=== PATIENT | female | born 2000 | race Caucasian/White ===

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

== ENCOUNTER 2020-01-28 11:14 | Outpatient (CLI) | payer BC, SELFPAY ==
--- NOTE | ~2020-01-28 | US_ITS ---
EXAMINATION: US breast RT limited HISTORY: Palpable lump at the 12:00 location of the right breast. TECHNIQUE: Limited right breast ultrasound is performed. FINDINGS: There is no evidence of focal abnormal cystic or solid mass in the vicinity of the reported palpable abnormality of concern. IMPRESSION: No specific sonographic correlate is identified for the reported palpable abnormality of concern. Fur ther evaluation at this time should be based on clinical assessment. Continued follow-up physical exa mination is recommended. BI-RADS Category 1: Negative Reviewed, dictated and finalized at location A. IMPRESSION: No specific sonographic correlate is identified for the reported palpable abnor mality of concern. Further evaluation at this time should be based on clinical assessment. Continued follow-up physical examination is recommended. BI-RADS Category 1: Negative
== END 2020-01-28 11:15 | disposition home or self-care (01) ==
LOC: ANHIMG 11:20
PROVIDERS: PCP Family Medicine; Visit Provider Nurse Practitioner Obstetrics & Gynecology
DX: N63.10 Unspecified lump in the right breast, unspecified quadrant (principal)
CPT/HCPCS: 76642

== ENCOUNTER 2021-08-30 02:18 | Day surgery (SDC) | payer BC, SELFPAY ==
[2021-08-24 09:20] VITALS: BMI 20.5
--- NOTE | 2021-08-24 09:27 | PC.NURSE ---
Report to the Outpatient Waiting Room, entrance under the green pavilion located off [facility], at time 0600 on date 08/30/21. OR Time: 0745. - You and your visitor will be asked a series of questions to screen for COVID 19 for your protection. - A mask is required within the hospital. - Only one visitor is allowed at this time. Patient visitors will be guided where to wait when not with patient. Preoperative COVID Testing Requirements: No COVID Test needed if: (proof is required; if not received patient will have Rapid Test prior to entry) - Patient has received COVID Vaccine at least 14 days prior to procedure date or - Patient has positive COVID test result within last 90 days of surgery date. COVID Test needed if above criteria is not met If not COVID vaccinated a COVID test must be conducted within 72 hours of surgery and patient is asked to isolate self from time of testing until procedure. You will go to the [facility] for your COVID testing. The [facility] site is located at the corner of [address] [facility]. You will only be called if COVID results are positive and your surgeon may reschedule your elective surgery date. Patients may have clear liquids (water, carbonated beverages, clear teas, apple juice) until 3 hours prior to surgery with a maximum of 20 ounces. - No food from midnight until time of surgery - Infants may have breast milk until 4 hours before surgery, formula 6 hours prior to surgery. - Children will be allowed to drink immediately following surgery. If applicable, please bring a bottle or sippy cup to assist with drinking. Juice, water, soda, and popsicles are readily available. For infants on formula, please bring formula the day of surgery. Pacifiers are allowed. Take the following medications with a SIP of water the morning of surgery: NONE Medications to discontinue per physician: VITAMINS/SUPPLEMENTS Date to take last dose: 08/26/21 STOP ASPIRIN (IN MIGRAINE RELIEF PILL) PER DR. COOPER Please no make-up, nail hungarian, hairspray, perfume, deodorant, or body powder the day of surgery. No jewelry (including any body piercings) or valuables the day of surgery, leave them at home. Please take a shower or bath the night before, or the morning of, surgery with an antibacterial soap. Wear comfortable, loose fitting clothing. Children are encouraged to wear pajamas. - Jewelry must be removed prior to entering the operating room. Rings and piercings that are not removed may be cut off. - The hospital will not accept responsibility for valuables. - Please leave all valuables, including medications, at home the day of surgery. If you are going home after surgery, a licensed truck driver's offsider must drive you home. - NO public transportation without another adult. - We recommend that an adult stay with you for 24 hours following discharge. - We also recommend that you do not drive, make important decision, drink alcoholic beverages, or take any drugs that were not prescribed by your health care provider for at least 24 hours after your discharge time. For Pediatric surgeries, we recommend two adults accompany the child home (only one inside the building at this time). Follow any additional instructions given to you from your surgeon. Telephone instructions given to FARIHA DAVIES and asked if any additional questions and then verbalized understanding. Patient advised to call surgeon office or pre surgery nurse liaison [phone] if any additional questions.
[2021-08-30] VITALS (8 sets, daily range): BP systolic 109–140; BP diastolic 68–89; PULSE 58–98; RESP 10–16; TEMP 36.2–36.6; O2SAT 98–100
[2021-08-30] MEDS: ACETAMINOPHEN 500 MG TABLET 1000 MG PO (06:50)
--- NOTE | 2021-08-30 07:13 | WPDANESEPPF ---
Anes - Initial Pre Proc Eval Procedure: Operation Date: 08/30/21 07:45 Proposed Procedures p Image Guided Bilateral Ethmoidectomy, Bilateral Maxillary Antrostomy, Bilateral Turbinate Reduction, Right Citlali Bullosa Resection - Edgard Florentino MD Date/Time: 08/30/21 07:13 Surgeon: Edgard Florentino MD Pre Op Diagnosis: Chronic Sinusitis Patient Data Age: 21 Gender: F Height: 1.73 m Weight: 61.24 kg Allergies Allergy/AdvReac Type Severity Reaction Status Date / Time Tetanus Vaccines and Toxoid Allergy Severe Seizure Verified 08/30/21 06:18 aloe Allergy Intermediate Hives Verified 08/30/21 06:18 Home Medications Medication Instructions Recorded Confirmed Type loratadine [Claritin] 10 mg PO DAILY 10/29/19 08/30/21 History vznaair-ynnzscmxujjmv-kkoknxpt 1 tablet PO Q4-6H PRN 08/24/21 08/30/21 History [Migraine Relief] multivitamin [One A Day] 1 tablet PO DAILY 08/24/21 08/30/21 History Patient hx anesthesia problems: none Family hx anesthesia problems: none Results Review: All pre-operative results and documents have been reviewed as part of the pre-operative evaluation. [facility] Past Medical History Medical History Adult BMI 19-24 kg/sq m GERD (gastroesophageal reflux disease) Hx of migraines Family History Family History Father GERD (gastroesophageal reflux disease) Mother No problems noted. Sibling No problems noted. 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 Informed Consent: The patient's anesthetic plan and its attendant risks and benefits were discussed with the patient/family/POA. Questions were solicited and answers provided to the satisfaction of the patient/family/POA.
[2021-08-30] MEDS: LACTATED RINGERS 1,000 ML 30 ML IV CONT ×2 (07:25→08:59)
[2021-08-30] MEDS: OXYMETAZOLINE HCL 0.05% NAS 15 ML BTL (*BKC) 1 SPRAY NASAL (07:31)
--- NOTE | 2021-08-30 07:43 | P.HP_ITS ---
"H&P: HPI History of Present Illness Date/Time: 08/30/21 07:43 Chief Complaint: Recurrent polyposis Narrative: hx of FESS in 2020, polyp recurrence with chronic sinusitis Review of Systems Review of Systems: All systems reviewed & are unremarkable except as noted in HPI and below PMFSH Past Medical History Medical History Adult BMI 19-24 kg/sq m GERD (gastroesophageal reflux disease) Hx of migraines Family History Family History Father GERD (gastroesophageal reflux disease) Mother No problems noted. Sibling No problems noted. 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[employer] Gender identity (if verbalized by the patient): Female Spiritual care concerns: No Meds Home Medications and Allergies Home Medications Medication Instructions Recorded Confirmed Type loratadine [Claritin] 10 mg PO DAILY 10/29/19 08/30/21 History gikoltc-msxxtkvkzsbgp-yyjjtouz 1 tablet PO Q4-6H PRN 08/24/21 08/30/21 History [Migraine Relief] multivitamin [One A Day] 1 tablet PO DAILY 08/24/21 08/30/21 History Allergies Allergy/AdvReac Type Severity Reaction Status Date / Time Tetanus Vaccines and Toxoid Allergy Severe Seizure Verified 08/30/21 06:18 aloe Allergy Intermediate Hives Verified 08/30/21 06:18 Vital Signs Vital Signs - 24 hr 08/30/21 07:23 Temperature 36.6 C Pulse Rate 98 Blood Pressure 114/68 Pulse Oximetry 100 Exam Narrative: Bilateral nasal polyps, chronic maxillary and ethmoid sinusitis, r est of exam wnl Assessment and Plan Assessment and plan (1) Nasal polyp: Code(s): J33.9 - Nasal polyp, unspecified Status: Acute Assessment and Plan: Rebeca has chronic sinusitis, nasal polyposis recurrence after FESS in 2019 despite topical and oral steroid use. Here today for revision FESS. r/b/a reviewed as documented in outpatient notes."
--- NOTE | 2021-08-30 07:45 | W.PM.PROC2 ---
Procedure Note - Detailed Date of Procedure 08/30/21 Pre-op Diagnosis Chronic Sinusitis Surgeon Edgard Florentino MD
--- NOTE | 2021-08-30 07:45 | WPDHPUPDATE1 ---
History and Physical Update Update Date/Time: 08/30/21 07:45 History and Physical has been reviewed, including an updated exam of the patient. There are NO changes in the patient's condition. Risks, benefits, and alternatives have been discussed and questions answered. Patient agrees to proceed with procedure.
[2021-08-30] MEDS: ceFAZolin 2 GM/D5W 50 ML 2 GM/50 ML BAG IVPB (07:57)
[2021-08-30] MEDS: LIDO 1%/EPINEPHRINE 1:100,000 50 ML VIAL INFILTRATE (08:48)
--- NOTE | 2021-08-30 08:51 | W.PM.PROC2 ---
Procedure Note - Detailed Date of Procedure 08/30/21 Pre-op Diagnosis Chronic Sinusitis Post-op Diagnosis same Procedure Performed Bilateral maxillary antrostomy, total ethmoidectomy, right georgina bullosectomy, inferior turbinoplasty Surgeon Edgard Florentino MD Anesthesia general Indications Chronic sinusitis and nasal polyposis Findings Polypoid degeneration of bilateral middle turbinates. Middle turbinectomy performed bilaterally Description of Procedure On the date of procedure the patient was met in the preoperative area and risk and benefits of the procedure reviewed with the patient as documented in the H&P and they elected to proceed with surgery. Patient was brought back to the operating room by the anesthesia team and underwent general endotracheal anesthesia. Once an adequate plane of anesthesia was obtained a timeout was performed to assure the patient identification the patient here to be performed were correct. They were.The patient was then prepped and draped in the normal fashion for endoscopic sinus surgery. The diffusion image guidance system was calibrated and used for the entire case. Afrin-soaked pledgets were placed in the nasal cavities bilaterally. The entire case was performed under endoscopic visualization. Nasal endoscopy was performed at the beginning of the case. 1% lidocaine with 1:100,000 epinephrine was then injected into the root of the middle turbinate and lateral nasal wall. Attention was first directed towards the right side. The middle turbinate was noted to be polypoid and obstructing the middle meatus. Decision made for partial middle turbinectomy which was performed with biting forceps and microdebrider. The maxillary ostia from previous surgery was patent and only partially needed revision and widening. There were residual cells of the ethmoid sinus that were removed using image guided microdebrider. Once the maxillary antrostomy, ethmoidectomy and middle turbinectomy were completed, this side was finished. Novapack was placed in the ethmoid cavity and care was directed to the left side. In a very similar fashion, the left maxillary antrostomy, total ethmoidectomy, middle turbinectomy were performed. Polyps were noted on the left middle turbinate as well. No clinical evidence of CSF throughout the case. With all sinuses opened and no remaining polyp disease appreciated, novapack packing was placed in the ethmoid acvities bilaterally. Hemostasis was ensured. Lastly, the bilateral inferior turbiantes were reduced submucosally using 2mm microdebrider and then outfractured with a sayer elevator. This significantly opened the airway. At this point, the procedure was concluded. Care the patient was transferred back to the anesthesia team and the patient was awoke in the operating room and transferred back to the PACU in stable condition. Edgard Florentino M.D. Estimated Blood Loss 10 Drains No Packing Yes (jennifer) Pathology none sent Complications No immediate complications Condition stable Disposition PACU
== END 2021-08-30 10:36 | disposition home or self-care (01) ==
PROVIDERS: PCP Family Medicine; Visit Provider Otolaryngology
PROC: (CPT 31255; principal; 2021-08-30 07:45)
DX: J32.9 Chronic sinusitis, unspecified (principal); J33.9 Nasal polyp, unspecified
CPT/HCPCS: 31255; 31240; 31256; 61782; 30140; A9270; J0330; J0690; J1100; J2250; J2405; J2704; J3010; J7120

== ENCOUNTER 2022-09-07 13:39 | Outpatient (CLI) | payer BC, SELFPAY ==
--- NOTE | ~2022-09-07 | XR_ITS ---
XR chest 2V DATE: 09/07/2022 13:56 INDICATION: Cough TECHNIQUE: 2 views COMPARISON: 07/05/2019 2 view chest FINDINGS: There is mild patchy left lower lobe infiltrate and/atelectasis. Left lower lobe pneumonia is suggested. The lungs otherwise appear clear. No pleural effusion, pulmonary vascular congestion or pneumothorax. Heart size is normal. Included skeletal structures are unremarkable. IMPRESSION: Mild patchy left lower lobe infiltrate and/atelectasis Reviewed, dictated and finalized at location B. ROLLER
== END 2022-09-07 13:40 | disposition home or self-care (01) ==
PROVIDERS: PCP Family Medicine; Visit Provider Nurse Practitioner Family
DX: R05.9 Cough, unspecified (principal); R91.8 Other nonspecific abnormal finding of lung field
CPT/HCPCS: 71046

== ENCOUNTER 2025-07-16 13:05 | Inpatient (IN) | payer BC, MEDICAID, SELFPAY ==
[2025-07-16] VITALS (91 sets, daily range): BP systolic 94–139; BP diastolic 45–112; PULSE 64–297; RESP 17; TEMP 36.6–36.9; O2SAT 96–100; BMI 28.5
--- NOTE | 2025-07-16 13:41 | LDADM ---
This patient, Rebeca Mcmahan, was admitted to Labor/Delivery/Recovery 103 on 07/16/25 at 13:05. Plans for labor, pain management and were discussed with patient. Patient/family oriented to hospital policies and general routines including ID bracelet, bed and alarms, visiting hours, pain management, procedures, bathroom and other care routines, personal items, smoking policy, room service/diet and guest tray routines, infant security routines, and visiting hours. Patient/Family are encouraged to report perceived risks to care and to ask questions if they do not understand what they are told or what they should do. See [facility] for further documentation.
[2025-07-16 13:45] LABS: Hematocrit 33.2 % (37.0-47.0); Hemoglobin 10.6 g/dL (12.0-15.0); Immature Granulocyte Percent A 0.9 % (0-0.5); Lymphocytes Absolute Auto 2.20 K/mm3 (0.9-3.2); Mean Corpuscular HGB Conc 31.9 g/dl (32-36); Mean Corpuscular Hemoglobin 26.2 pg (26-34); Mean Corpuscular Volume 82.2 fl (80-100); Nucleated Red Blood Cells Absolute Auto 0.000 K/mm3 (0.0-0.012); Nucleated Red Blood Cells Perc 0.0 % (0.0-0.2); Platelet Count Result 259 k/mm3 (150-375); Red Blood Count 4.04 M/mm3 (4.2-5.4); White Blood Count 11.5 K/mm3 (4.5-10.0)
[2025-07-16] MEDS: fentaNYL CITRATE INJ (*CRX) 100 MCG/2 ML VIAL 50 MCG IV PUSH (14:12)
[2025-07-16 14:24] LABS: OBXCEM ROM Plus Positive (Negative)
[2025-07-16 14:31] LABS: Syphilis IgG/IgM Antibody Non-Reactive (Nonreactive)
--- OUTSIDE RECORDS SUMMARY | 2025-07-16 14:42 | XMS_ITS | Clinical Summary ---
Author Organization [facility] Address [address] [place] [address] Care Team Providers Care Moshgiach Name Role Phone Trina Diaz MD Unavailable [phone] Source Comments [facility],non-owned Affiliates and Associated Physician Practices is amultiple site organization consisting of ambulatory clinics and hospital sitesin [place], [place], [place] and [place]. This disclosure is being madepursuant to the Care Everywhere program and may not contain all information available regarding this patient. Last updated 18.[facility] Allergies Active Allergy Reactions Criticality Noted Date Comments Aloe Vera 10/20/2009 Adacel Other Low 07/23/2012 Passed out after shot and had some shaking movements. Mom thinks it was a seizure. (Mom is EMT). (likely myoclonic jerks) Medications * Be aware that medications may not be up to date on this document. Alwaysverify current medications with the patient. MICROGESTIN FE 1.530 1.5-30 MG-MCG tablet TK 1 T PO QD 0 7 Active loratadine (CLARITIN) 10 MG tablet Take 10 mg by mouth once daily as needed for Runny Nose or Allergies Active Active Problems Patient Care Coordination No te Formatting of this note migh t be different from the original. Please see care plan in problem list. Problem Noted Date Diagnosed Date USP: abnormality in pr egnancy (HCC) - Unilateral pyelectasis 07/08/2025 Overview (07/08/2025): Images from the original note were not included. USP PATIENT--PLEASE CALL [phone] (ex 2) IF TRIAGED OR ADMITTED Care Provider: [facility] consultants involved: Diagnosis: Planned surveillance: Delivery location: Delivery mode: Desired Delivery GA: follow up: Body Recall Instructor: Autopsy indicated: Genetics note: Php Mysql Web Developer Concerns: Care plan based on evaluation and is subject to change based on assessment. See Images or Cardiac under Chart Review for US/ ECHO/ MRI reports. Allergic rhinitis 05/17/2011 Allergic conjunctivitis 05/17/2011 Multiple allergies 05/17/2011 Estimated Date of Delivery Comme nts Yes 07/28/2025 Based on Patient Reported Encounters Date Type Department Care Team Description 07/09/[address] [phone] Kendal Love, RN Returned Call 07/08/[address] [address] Rosibel Causey, meal attendant 07/07/2025 Telephone [facility] [address] [place], [place] [id number] Jemma Concepcion RN Future Appointment (Called patient to let her know to expect a call from [facility] for future appt regarding renal dilation seen on outside scan.) from Last 3 Months Immunizations Immunization Administration Dates Next Due INFLUENZA VACCINE, TRIV. (AF LURIA, FLUZONE TRIVALENT; 6MO+) (IIV3) 05/19/2011 DTaP VACCINE IM (6wk-6yrs) 05/25/2006,,02/06/2001,11/30,2000 HEP A PEDS 2 DOSE 03/08/2012,05/27/2006 HEP B VACCINE, PED/ADOL 05/17/2001,2000, HIB BOOSTER 09/15/2003, 1,2000,10/02 GIO VACCINE QUAD LAIV4 PF NASAL 06/10/2015,2012 MENINGOCOCCAL ACWY (MCV4P) VAC IM 06/08/2018, MMR 05/25/2006,08/03/2001 PNEUMOCOCCAL CONJ, PEDS 08/21/2003,02/06,2000,10/02 POLIO IPV 05/25/2006, 3,2000,10/02 PPD 05/25/2006,08/03/2001 TDAP (7yrs+) 03/08/2012 VARICELLA 06/10/2015,08/21/2003 Family History Medical History Relation Name Comments Allergies Brother Bleeding Disorders Brother Allergies Mother Anemia Mother Asthma Mother Migraine Mother Relation Name Status Comments Brother Mother Social History Tobacco Use Types Packs/Day Years Used Date Smoking Tobacco: Never Smokeless Tobacco: Never Estimated Date of Delivery Comme nts Yes 07/28/2025 Based on Patient Reported Sex and Gender Information Value Date Recorded Sex Assigned at Not on file 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 Gender Identity Not on file Sexual Orientation Not on file Last Filed Vital Signs Vital Sign Reading Time Taken Comments Blood Pressure 108/70 11/26/2018 1:09 PM CDT Pulse 53 11/26/2018 1:09 PM CDT Temperature 36.6 C (97.8 F) 11/26/2018 1:09 PM CDT Respiratory Rate - - Oxygen Saturation - - Inhaled Oxygen Concentration - - Weight 65.8 kg (145 lb) 11/26/2018 1:09 PM CDT Height 171.5 cm (5' 7.5) 11/26/2018 1:09 PM CDT Body Mass Index 22.38 11/26/2018 1:09 PM CDT Plan of Treatment Upcoming Encounters Date Type Department Care Team (Late st Contact Info) Description 07/17/2025 2:15 PM CDT Hospital Encounter [address] [address] Health Maintenance Due Date Last Done Comments HIV SCREENING 2015 HPV VACCINE (1 - 3-dose series) 2015 CHLAMYDIA/GONORRHEA SCREENING 2016 HEPATITIS C SCREENING 07/28/2018 PAP SMEAR 2021 DTAP/TDAP/TD VACCINES (7 - Td or Tdap) 03/08/2022 03/08/2012, 05/25/2006, 09/15/2003, Additional history exists DEPRESSION SCREENING 09/18/2024 OB-ONE HOUR GLUCOSE 04/21/2025 OB-TDAP CURRENT 04/28/2025 03/08/2012 OB-RHOGAM INJECTION 05/05/2025 COVID-19 VACCINE ( season) 2025 06/10/2022, 03/09/2021, 02/10/2021 INFLUENZA VACCINE (#1) 2025 5, 06/06/2013, 05/19/2011 OB-GROUP B STREP SCREEN 06/23/2025 ZOSTER VACCINE (1 of 2) 2050 HEPATITIS B VACCINE Completed 05/17/2001, 2000, 2000 PNEUMOCOCCAL VACCINE Completed 08/21/2003, 02/06/2001, 2000, Additional history exists HIB VACCINE Completed 09/15/2003, 01/17, 2000, Additional history exists MENINGOCOCCAL GROUPS A/C/Y/W VACCINE Completed 06/08/2018, 06/10/2015 MENINGOCOCCAL (Group B) VACCINE SHARED DECISION-MAKING Aged Out No longer eligible based on patient's age to complete this topic Respiratory Syncytial Virus (RSV) Vaccine Pt: or over 60 yrs (No Doses Required) Completed Goals Goal Patient Goal Type Associated Problems Recent Progress Patient-Stated? Author Use safety retraint in car Lifestyle On track( 018 2:13 PM AIR MOVING TECHNICIAN) Violet Gusman, RN Insurance [employer] ANTHEM ANTHEM ANTHEM * Guarantor: FARIHA DAVIES Account Type Relation to Patient Date of Phone Billing Address Personal/Family [address] [place] [address] Care Teams Moshgiach Relationship Specialty Start Date End Date Trina Diaz MD PCP - Pediatrics 09/21/09
--- OUTSIDE RECORDS SUMMARY | 2025-07-16 14:42 | XMS_ITS | Encounter Summary ---
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
--- OUTSIDE RECORDS SUMMARY | 2025-07-16 14:43 | XMS_ITS | Data Portability ---
Author Organization [facility] Address [address] [place] [address] [place] [address] Care Team Providers Care Central Office Operator Name Role Phone YAIR COOK Primary Care Provider Assessment Encounter Date Assessment Date Assessment LastModified by Organization Details LastModified Time 06/20/2025 06/20/2025 Patient is _34__weeks . Discussed plan. [email or web address] Not available 06/20/2025 16:25:55 07/04/2025 07/04/2025 Patient is ___weeks . Discussed plan. [email or web address] Not available 07/04/2025 16:59:08 07/11/2025 07/11/2025 Patient is ___weeks . Discussed plan. [email or web address] Not available 07/11/2025 16:31:04 Plan of Treatment Reminders Order Date Submit Date Provider Last Modified By Organization Details Last Modified Time Details Appointments OB ROUTINE 2024 03:00P Reba Orellana CNM Not available Not available Not available Lab None recorded . Referral None recorded . Procedures None recorded . Surgeries None recorded . Imaging US, obstetri c, follow-u p 2024 025 SANDY [place], [address], [address], [place], [address], 07/05/2025 22:47:13 US, obstetri c, follow-u p 2024 025 [email or web address] [place], [address], [address], [place], [address], 06/04/2025 17:39:39 Medication Orders None recorded . Patient TargetsNo targets recorded. Patient InstructionsNo instructions recorded. Reason for Referral None Reported. Results Created Date Observation Date Name Description Value Unit Range Abnormal Flag Note LastModifiedBy Organization Detail LastModifiedTime 05/06/2005/06/2025 HEMAT OCRIT (HCT) HCT 32.6 % (based on docume nted legal sex) 34.0-4 5.0 low Not Available [facility] (Lab) [address] [place], [address], 05/07/2025 12:18:15 05/06/20 25 05/06/2025 HEMOG LOBIN (HGB) HGB 10.5 g/dL (based on docume nted legal sex) 11.6-1 5.4 low Not Available [facility] (Lab) [address] [place], [address], 05/07/2025 12:18:15 05/06/20 25 05/06/2025 GTT - GESTA MARCY L LIV [place], ACOG OB glucose, 1 hour screen 104 mg/dL 70-135 Not Available [facility] (Lab) [address] [place], [address], 05/07/2025 12:18:16 05/06/20 25 05/06/2025 HIV 1/2 ANTIG EN/AN TIBOD Y, REFLE X CONFI RMATI ON HIV antigen/anti body Nonrea ctive nonrea ctive HIV-1 antig en and HIV-1 /HIV- 2 antib odies were not detec chris. No labor atory evide nce of HIV infec tion. Not Available [facility] (Lab) [address] [place], [address], 05/07/2025 12:18:16 05/06/20 25 05/06/2025 RPR SCREE N, REFLE X TITER /CONF IRMAT ION RPR qualitative Nonrea ctive nonrea ctive Not Available [facility] (Lab) [address] [facility], [place], [address], 05/07/2025 12:18:17 07/04/20 25 07/04/2025 CULTU RE: GROUP B STREP SCREE N, REFLE X SUSCE PTIBI LITY result report SEE RESULT S BELOW Test: Cultu re: Group B Strep , Refle x Susce ptibi lity ([facility]/ [facility] ) Speci men Sourc e: Vagin a/Rec cheikh Speci men Type: Vagin al/Re ctal Speci men Date: 07/04 1615 Resul t Date: 07/07 1407 Resul t Statu s: Final resul t Abnor mal: No Resul ting Lab: [facility] [address] [facility] [address] Tel: CULTU RE ----- ----- ----- --- No Group B strep isola chris at 2 days (jennifer ctive broth enhan cemen t) Not Available [facility] (Lab) [address] [facility], [place], [address], 07/07/2025 15:28:53 06/04/20 25 06/04/2025 US, obste tric, follo w-up No observ ation record ed. [email or web address] [place] [address], [place], [address], 06/04/2025 17:38:59 06/04/20 25 06/04/2025 US, obste tric, follo w-up No observ ation record ed. [email or web address] [address] [facility], [place], [address], 06/04/2025 18:49:17 07/04/20 25 07/04/2025 US, obste tric, follo w-up No observ ation [facility]. [email or web address] [address], [place], [address], 07/04/2025 17:00:18 07/04/20 25 07/04/2025 US, obste tric, follo w-up No observ ation record ed. [email or web address] [address], [place], [address], 07/06/2025 20:58:08 Result Notes None recorded. 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 15:38:[address] Concept Completed 201503/29/2021 Encntr for routine child health exam w/o abnormal findings ;Recorde d Elsewher e: No Locat ion: [facility] S ource: [employer] Former jenna: N Kath ce ID: 0001 Bradley lable Time: 11:15:00 AM [facility] 15:38:[address] Concept Completed 201503/29/2021 Encntr for obstetrics gyn physician exam (general ) (routine ) w/o abn findings ;Recorde d Elsewher e: No Locat ion: [facility] S ource: [employer] Former jenna: N Arunti ce ID: 0001 Bradley lable Time: 11:15:00 AM [facility] 15:38:09 Uses combined oral contrace ption [id number] Completed 201503/29/2021 Encounte r for initial prescrip tion of contrace ptive pills;Re corded Elsewher e: No Locat ion: [facility] S ource: E[employer] And Former jenna: N Kath ce ID: 0001 Bradley lable Time: 11:15:00 AM Shea Chakraborty [facility], [facility] 15:37:58 Syphilis test finding [id number] Completed 201503/29/2021 Encntr screen for infectio ns w sexl mode of transmis s;Record ed Elsewher e: No [facility] Former jenna: Tae Diasti ce ID: 0001 Bradley lable Time: 11:15:00 AM Shea Chakraborty [facility], [facility] 15:38:11 Procedur e by method Completed 201603/29/2021 Encounte r for other general counseli ng and advice on contrace ption;Re corded Elsewher e: No Locat ion: [facility] S ource: E[employer] Former jenna: Tae Stockton ce ID: 0001 Bradley lable Time: 01:00:00 PM Shea Chakraborty [facility], [facility] 15:38:00 Pregnanc y test negative [id number] Completed 201803/29/2021 Encounte r for pregnanc y test, result negative ;Recorde d Elsewher e: No Locat ion: [facility] S ource: EHR [employer] And Former jenna: Tae Kath ce ID: 0001 Bradley lable Time: 01:30:00 PM Shea gandhi, [facility] 15:38:06 Finding of regulari ty of menstrua l cycle Completed 201803/29/2021 Irregula r bleeding ;Recorde d Elsewher e: No Locat ion: [facility] S ource: EHR Ins[employer] And Former jenna: Tae Arunti ce ID: 0001 Bradley lable Time: 01:30:00 PM Shea Chakraborty [facility], [facility] 15:38:02 Pregnanc y 68264120 Active 2024 Roxie Mendoza [facility], [facility] 5 15:17:52 Asthma 664184457 [facility] 20[facility] 17:56:09 Asthma 885231215 Active 2024 Roxie Mendoza [facility] 5 17:56:09 Problem Notes None recorded. Procedures Surgical History Date Name Laterality Status Provider Name and Address Organization Details Recorded Time 5 Date of Last [facility] 16:14:02 1 perinasal sinusotomy completed [facility] 12/20/2024 16:15:15 0 operation on accessory sinus completed [facility] 02/21/2025 17:56:52 Imaging Results None recorded. Procedure Notes None recorded. Medical Equipment None Reported. Allergies Allergen ID Allergen Name Allergen Category Reaction Reaction Severity Criticality Documentation Date Start Date Code Code System Note Provider Name and Address Organization Details Recorded Time 503 aloe extract food,medi cation Not available Not available Not available 01/24/2020 51127 RxNorm Melany Rene [facility] 0 10:49:18 504 Vaccine product containin g only Clostridi um tetani antigen (medicina l product) medicatio n Not available Not available Not available 01/24/2020 83402 2002 SNOMED Melany Rene [facility] 0 10:49:26 Medications Name Sig Start Date Stop Date Status Note LastModified by Organization Details LastModified Time amoxicill in 500 mg capsule 01/23 completed Not Available Not Available Not Available prednison e 10 mg tablet TAKE 1 TABLET BY MOUTH THREE TIMES DAILY FOR 5 DAYS 08/26 completed Not Available Not Available Not Available doxycycli ne hyclate 100 mg capsule 01/23 completed Not Available Not Available Not Available azithromy doc 250 mg tablet TAKE 2 TABLETS BY MOUTH FOR 1 DAY THEN TAKE 1 TABLET BY MOUTH DAILY FOR 4 DAYS 09/08 completed Not Available Not Available Not Available hydrocodo ne 5 mg-acetam inophen 325 mg tablet TAKE 1 TABLET BY MOUTH EVERY 4 HOURS NEEDED 08/26 completed Not Available Not Available Not Available prednison e 20 mg tablet 01/23 completed Not Available Not Available Not Available methylpre dnisolone 4 mg tablet 01/23 completed Not Available Not Available Not Available alprazola m 0.25 mg tablet 0.25 MG ORALLY TWICE A DAY NEEDED FOR FLYING ANXIETY 12/20 completed Not Available Not Available Not Available benzonata te 100 mg capsule TAKE 1 CAPSULE BY MOUTH THREE TIMES DAILY FOR 10 DAYS NEEDED FOR COUGH 09/08 completed Not Available Not Available Not Available triamcino lone acetonide 0.1 % topical ointment APPLY TOPICALL Y TO THE AFFECTED AREA THREE TIMES DAILY 08/26 completed Not Available Not Available Not Available omeprazol e 20 mg capsule,d elayed release TAKE 1 CAPSULE BY MOUTH DAILY 08/26 completed Not Available Not Available Not Available diclofena c sodium 75 mg tablet,de layed release 01/23 completed Not Available Not Available Not Available monteluka st 10 mg tablet 01/23 completed Not Available Not Available Not Available azelastin e 137 mcg (0.1 %) nasal spray U 1 SPR IEN BID 03/14 completed Not Available Not Available Not Available cefuroxim e axetil 500 mg tablet 01/23 completed Not Available Not Available Not Available methylpre dnisolone 4 mg tablets in a dose pack FOLLOW PACKAGE DIRECTIO NS 03/30 completed Not Available Not Available Not Available ondansetr on 4 mg disintegr ating tablet DISSOLVE 1 TABLET ON THE TONGUE EVERY 6 HOURS active Not Available Not Available No t Available fluticaso ne propionat e 50 mcg/actua tion nasal spray,[facility]ley pension 01/23 completed Not Available Not Available Not Available amoxicill in 875 mg-potass ium clavulana te 125 mg tablet TAKE 1 TABLET BY MOUTH TWICE DAILY 08/26 completed Not Available Not Available Not Available .02/14 (28) 1.5 mg-30 mcg (21)/75 mg (7) tablet TAKE 1 TABLET BY MOUTH EVERY DAY 09/08 completed Not Available Not Available Not Available Claritin 05/21 completed Not Available Not Available Not Available with iron active Not Available Not Available No t Available Zyrtec active Not Available Not Availa ble Not Available ProAir HFA 90 mcg/actua tion aerosol inhaler 01/23 completed Not Available Not Available Not Available Symbicort 80 mcg-4.5 mcg/actua tion HFA aerosol inhaler 01/23 completed Not Available Not Available Not Available Lo Loestrin Fe 1 mg-10 mcg (24)/10 mcg (2) tablet Take 1 tablet every day by oral route. 03/29 completed Not Available Not Available Not Available Lomedia 24 Fe 1 mg-20 mcg (24)/75 mg (4) tablet TAKE 1 TABLET BY ORAL ROUTE EVERY DAY 06/20 completed Prescrib joi Vargas e: No Locat ion: [facility] M odify By: alex chopra DateTime : 03/22/20 08:08:32 AM Not Available Not Available Not Available Xhance 93 mcg/actua tion breath activated aerosol INSTILL 1 SPRAY IN EACH NOSTRIL TWICE DAILY. active Not Available Not Available No t Available ID NOW COVID-19 Test Kit TEST DIRECTED 08/26 completed Not Available Not Available Not Available Vitals Date Recorded Body height Body mass index (BMI) Body weight Systolic And Diastolic Provider Name and Address Organization Details Last Updated DateTime 06/04/2025 172.72 cm 28.6 kg/m2 00048.37 g 106/72 mm[Hg] [facility] 06/04/2025 17:52:34 Date Recorded Body height Body mass index (BMI) Body weight Systolic And Diastolic Provider Name and Address Organization Details Last Updated DateTime 06/20/2025 172.72 cm 28.9 kg/m2 41693.55 g 117/74 mm[Hg] [facility] 06/20/2025 16:00:03 Date Recorded Body weight Systolic And Diastolic Provider Name and Address Organization Details Last Updated DateTime 07/04/2025 17755.87408 g 111/71 mm[Hg] Kristan Garrison [facility] 07/04/2025 16:59:37 Date Recorded Body weight Systolic And Diastolic Provider Name and Address Organization Details Last Updated DateTime 07/11/2025 63168.36414 g 109/69 mm[Hg] Theresa Weller [facility] 07/11/2025 16:31:25 Social History Question Answer Notes LastModified by Organizat ion Details LastModified Time Tobacco Smoking Status Never Smoker Arianna Jeryr gandhi, [facility] 08/26/2022 15:43:29 Are You Blind Or Do You Have Difficulty Seeing? No Information n ot available 03/29/2021 What Is Your Level Of Caffeine Consumption? Occasional [email or web address] Information not available 12/20/2024 How Much Tobacco Do You Chew? None Information not available 08/26/2022 In The 14 Days Before Symptom Onset, Have You Had Close Contact With A Laboratory-confirm ed COVID-19 While That Case Was Ill? No Information n ot available 08/26/2022 In The 14 Days Before Symptom Onset, Have You Had Close Contact With A Person Who Is Under Investigation For COVID-19 While That Person Was Ill? No Information not available 08/26/2022 Have You Been To An Area Known To Be High Risk For COVID-19? No Information not available 08/26/2022 Are You Deaf Or Do You Have Serious Difficulty Hearing? No Information not available 03/29/2021 What Type Of Diet Are You Following? REGULAR Information n ot available 03/29/2021 What Is The Highest Grade Or Level Of School You Have Completed Or The Highest Degree You Have Received? [id number] [email or web address] Information not available 12/20/2024 Are There Any Guns Present In Your Home? No Information not available 08/26/2022 Do You Use Protection During Sex? Always Information not available 08/26/2022 Do You Use Your Seat Belt Or Car Seat Routinely? Yes Information not available 03/29/2021 Are You Sexually Active? Yes [email or web address] Information not available 05/06/2025 Do You Have Smoke And Carbon Monoxide Detectors In Your Home? Yes Information not available 03/29/2021 How Much Tobacco Do You Smoke? No Information not available 08/26/2022 Do You Use Sunscreen Routinely? Yes Information not available 03/29/2021 Have You Used IV Drugs? No Information not available 08/26/2022 Do You Have Difficulty Walking Or Climbing Stairs? No Information not available 08/26/2022 Sex: Unknown Functional Status Question Answer Note LastModified by Organizat ion Details LastModified Time Do you use any illicit or recreational drugs? No Information not available 03/29/2021 Do you or have you ever used any other forms of tobacco or nicotine? No [email or web address] Information not available 05/06/2025 What is your level of alcohol consumption? None Information not available 08/26/2022 Are you currently employed? Yes Information not available 05/06/2025 Are you able to walk independently without assistance or assistive devices? [email or web address] Information not available 03/29/2021 Are you able to care for yourself independently? 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 No Information not available 08/26/2022 What is your exercise level? Moderate Information not available 03/29/2021 Mental Status Question Answer Note LastModified by Organization D etails LastModified Time Do you feel stressed (tense, restless, nervous, or anxious, or unable to sleep at night)? [id number] Information not available 02/21/2025 Family History Relationship Description Onset Age of this Age Resolved Age Notes LastModified by Organization Details LastModified Time Mother Anemia [email or web address] Not available 10:50:28 Mother Asthma [email or web address] Not available 10:51:06 Brother Asthma [email or web address] Not available 0 01/24/2020 10:51:06 Brother Blood coagulation disorder [email or web address] Not available 2019 10:52:46 Maternal Aunt Asthma Not avail able 01/24/2020 10:51:06 Maternal Uncle Asthma Not available 01/24/2020 10:51:06 Maternal Grandmother Anemia [email or web address] Not available 2019 10:51:12 Maternal Grandmother Hypercholest erolemia [email or web address] Not available 2019 10:51:34 Maternal Grandmother Carcinoma in situ of liver [email or web address] Not available 04/2025 16:38:41 Maternal Grandmother Hypertensive disorder [email or web address] Not available 2019 10:52:14 Maternal Grandmother Seizure disorder [email or web address] Not available 04/2025 16:38:41 Paternal Grandmother Hypercholest erolemia [email or web address] Not available 2019 10:51:34 Paternal Grandmother Hypertensive disorder [email or web address] Not available 2019 10:52:14 Paternal Grandmother Diabetes mellitus [email or web address] Not available 2019 10:52:40 Paternal Grandfather Hypercholest erolemia [email or web address] Not available 2019 10:51:34 Paternal Grandfather Hypertensive disorder [email or web address] Not available 2019 10:52:14 Medical History Condition Response Allergies (Food, seasonal, environmental ) Y Other N Breast Cancer N Drug/Latex Allergies/Reactions N Blood Transfusion N Dermatologic Disorders N Lung Disease N Defects or Inherited Disease N Breast Problem N Gestational Diabetes N Hematologic disorders N Anesthesia Complications N History of STI N Deep Vein Thrombosis N Polycystic ovary syndrome N Anxiety Disorder Y Autoimmune disease N Arthritis N Infertility N Polyps N Acid Reflux (GERD) N History of abnormal pap N Cancer N Stroke N Varicosities N Neurologic/Epilepsy N Endometriosis N High Cholesterol N Headaches N Fibromyalgia N Kidney Disease N Heart Problems N Kidney or Bladder Problems N Thyroid Problems N GI Problems N Eating Disorder N Anemia N Art (IVF or FET) N Psychiatric Illness N Ovarian Cancer N Diabetes N Pulmonary (TB, Asthma) N Hepatitis/Liver Disease N No Past Medical History Y Eczema Y Urinary Tract Infection N Abuse/Domestic Violence N Asthma Y Trauma/Violence N Depression/ depression N Heart Disease N Pre-Eclampsia N Hypertension N Osteoporosis N Thrombophilias N Gynecological History Statement/Question Response Abnormal Pap N Flow Moderate Date of Last Mammogram Date of LMP 10/21/2023 Was last menstrual period normal Y STIs/STDs N HPV Vaccine N Current Control Method Are cycles usually normal Y Date of Last Colonoscopy Frequency of Cycle (Q days) 23 Sexually Active? Y Menses Monthly Y Date of DEXA bone scan Age of first menstrual cycle 13 Date of Last Pap Smear 12/20/2024 Sexual Problems? N LMP Approximate N Obstetrics History GPAL:G 1 P 0 0 0 0 Type Value Living 0 Total 1 Past Encounters Encounter ID Performer Location Encounter Start Date Encounter Closed Date Diagnosis/Indication Diagnosis SNOMED-CT Code Diagnosis ICD10 Code Diagnosis IMO Codes Diagnosis Note [id number] Carrie Cortes [facility] [address] [address] 01/24/2020 10:41:14 01/24/2020 11:14:09 Mass of right breast [id number] N63.10 Patient is [id number] female who presents today with concerns of a lump she has found in right breast near areola. It is tender, small, hard. She denies d/c, drainage, skin discolorat ion or texture changes. Noticed this area approx 2 days ago.LMP2.5 wks ago Exam is consistent with patient complaints . Unsure if linked to menstrual cycle. Recommende d pursue imaging at this time b/c there also seems to be some bruising in area of concern which I would not expect with normal hormonal fibrocysti c changes associated with menstrual cycle. Time spent in visit is a total of 15 mins with at least 50% of visit consisting of counseling and review of plan of care. [id number] Carrie Cortes [facility] [address] [address] 02/21/2020 10:18:28 02/21/2020 13:53:09 Breast lump [id number] N63.0 Patient is here to f/u for left breast tenderness & lump. Her US is wnl. She feels this area has resolved.H er exam waswnltoda y. She agrees to do SBE monthly week prior & week after menses to note changes. RTO if issues or prn. Time spent in visit is a total of 15 mins with at least 50% of visit consisting of counseling and review of plan of care. [id number] Carrie Cortes [facility] [address] [address] 03/30/2021 13:40:19 03/30/2021 14:19:39 test negative [id number] Z32.02 Gynecologi c examination 66749032 Z01.419 Take Calcium with Vitamin D 1200mg daily if not receiving in daily diet. It is strongly advised to have an annual flu shot and up can obtain at most pharmacies . If you have not had a TDap shot in the last 10 years you should obtain one as well. Discussed with patient & provided with informatio n regarding Gardisil vaccine to prevent the 4 strains for HPV that cause cervical cancer. Encourage safe sexual practices, to use condoms and limit partners if not already in a monogamous relationsh ip. Do monthly self breast exams. BRCA testing is now available for patients with strong genetic history of female cancer. If interested contact the office. Engage in daily exercise of low impact aerobic exercise 45-60 minutes 4-5 times weekly. Avoid tobacco, illicit drugs, and alcohol. This lifestyle behavior pattern will lead to less health conditions and longer life span. If BMI greater than 25 weight watchers or dietary consult advised. Pap smear is not recommende d prior to the age of 21. If you have any concerns, pelvic, or vaginal problems we can discuss testing. Patient received above instructio ns, and questions have been answered. If you have any questions please call or respond to this email. Patient was made aware of the patient portal and may obtain a paper copy of today's plan if desired. Primary pap next yearDeclin ed std screeningN o issues or concerns Pap procedure & guidelines reviewedSB E taught Contracept ion care management [id number] Z30.9 Happy on OCPRF sent [id number] [facility] [address] [place], [place] [address] 08/26/2022 15:33:53 08/27/2022 11:12:00 Gynecologic examination 25034249 Z01.419 Take Calcium with Vitamin D 1200mg daily if not receiving in daily diet. It is strongly advised to have an annual flu shot and up can obtain at most pharmacies . If you have not had a TDap shot in the last 10 years you should obtain one as well. Discussed with patient & provided with informdbo tae regarding Gardisil vaccine to prevent the 4 strains for HPV that cause cervical cancer. Encourage safe sexual practices, to use condoms and limit partners if not already in a monogamous relationsh ip. Do monthly self breast exams. BRCA testing is now available for patients with strong genetic history of female cancer. If interested contact the office. Engage in daily exercise of low impact aerobic exercise 45-60 minutes 4-5 times weekly. Avoid tobacco, illicit drugs, and alcohol. This lifestyle behavior pattern will lead to less health conditions and longer life span. If BMI greater than 25 weight watchers or dietary consult advised. Pap smear is not recommende d prior to the age of 21. If you have any concerns, pelvic, or vaginal problems we can discuss testing. Patient received above instructio ns, and questions have been answered. If you have any questions please call or respond to this email. Patient was made aware of the patient portal and may obtain a paper copy of today's plan if desired. Pap sent STD Screen declined Genetic Screen discussed Colon Screen na Dexa Screen na Routine Labs naMammo na Booklet & additional resources regarding pap smear/HPV/ Pap results given. [email or web address].cancer.g ov/types/c ervical/un derstandin g-abnormal -hpv-and-p ap-test-re sults/unde rstanding- cervical-c hanges.pdf [facility] [id number] Z30.9 Happy on OCPRF sent [id number] MICHAEL Elizabeth [place] [address] [address] 09/08/2023 09:17:20 09/08/2023 11:41:52 Gynecologic examination [id number] Z01.419 WWEencoura ged daily PNVpap due screening declineden couraged annual exam with PCPRTC in 1 yr or sooner if needed Take Calcium with Vitamin D daily if not receiving in daily diet.It is strongly advised to have an annual flu shot and up can obtain at most pharmacies . If you have not had a TDap shot in the last 10 years you should obtain one as well. Discussed with patient & provided with informatio n regarding Gardisil vaccine to prevent the 4 strains for HPV that cause cervical cancer if under age 26.Encoura ge safe sexual practices, to use condoms and limit partners if not already in a monogamous relationsh ip.Do monthly self breast exams. Engage in daily exercise of low impact aerobic exercise 45-60 minutes 4-5 times weekly. Avoid tobacco and illicit drugs as well as using moderation with alcohol intake less than 1-2 8 oz beverages daily. This lifestyle behavior pattern will lead to less health conditions and longer life span. If BMI greater than 25 dietary consult advised.[place]otero [place] received above instructio ns, and questions have been answered. If you have any questions please call or respond to this email.Gemma mccoy was made aware of the patient portal and may obtain a paper copy of today's plan if desired. [id number] Aime Daly MD [place] [address] [place] [address] 12/19/2024 16:46:54 12/19/2024 17:18:10 [id number] [facility] [address] [place] [place] [address] 12/20/2024 15:34:59 12/23/2024 06:57:03 Gynecologic examination [id number] Z01.419 Z11.3 Z11.8 +UPT f/u 12 week new ob and first look declines NIPT [id number] Aime Daly MD [place] [address] [place] [place] [address] 01/23/2025 16:38:31 01/23/2025 17:36:32 screening [id number] Z36.82 Z3A.13 [id number] [facility] [address] [place] [place] [address] 02/21/2025 14:46:18 02/21/2025 15:43:14 Gestation period, 17 weeks [id number] Z3A.17 [id number] Aime Daly MD [place] [address] [address] 03/13/2025 16:40:59 03/14/2025 09:13:51 screening for malformation [id number] Z36.3 Z3A.20 [id number] Karissa Orellana CNM [place] [address] [address] 03/14/2025 15:25:02 03/14/2025 16:36:36 Gestation period, 20 weeks [id number] Z3A.20 [id number] Aime Daly MD [place] [address],[place] [address] 04/09/2025 16:18:47 04/09/2025 17:38:40 Follow-up encounter [id number] Z36.2 Z3A.24 [id number] [facility] [address] [address] 04/09/2025 16:19:38 04/09/2025 16:42:33 Gestation period, 24 weeks [id number] Z3A.24 [id number] ARMINDA PHAM MD [place] [address],[place] [address] 05/06/2025 16:23:54 05/06/2025 17:09:58 Third trimester [id number] Z34.03 [id number] Karissa Orellana CNM [place] [address],[place] [address] 05/21/2025 16:37:36 05/21/2025 17:11:26 Gestation period, 30 weeks 51304602 Z3A.30 [id number] Aime Daly MD [place] [address],[place] [address] 06/04/2025 16:40:19 06/04/2025 17:18:27 Follow-up status [id number] O35.EXX0 Z03.74 Z3A.32 [id number] Karissa Orellana CNM [place] [address],[place] [address] 06/04/2025 16:41:36 06/05/2025 09:01:04 Gestation period, 32 weeks [id number] Z3A.32 [id number] [facility] [id number] R11.0 [id number] Karissa Orellana [facility] [address],[place] [address] 06/20/2025 15:49:21 06/20/2025 16:27:50 Gestation period, 34 weeks 10578712 Z3A.34 [id number] Aime Daly MD [place] [address] [address] 07/04/2025 16:13:31 07/04/2025 16:57:37 [place] [id number] O35.EXX0 Z3A.36 [id number] Karissa Orellana [facility] [address],[place] [address] 07/04/2025 16:13:46 07/07/2025 09:14:59 Gestation period, 36 weeks [id number] Z3A.36 [id number] Kraissa Orellana [place] [address] [address] 07/11/2025 16:17:05 07/11/2025 16:53:48 Gestation period, 37 weeks [id number] Z3A.37 [id number] Health Concerns Section Related Observation LastModified by Organization Detai ls LastModified Time None Recorded Concern Status LastModified by Organization Details LastModified Time None Recorded Advance Directives Directive None Recorded Payers Insurance Date Sequence Insurance Name Policy Number Policy Joseph Covered Member ID Joseph Member ID Guarantor Name 06/17/2025 1 [place] [id number] Willi Mcmahan [id number] Rebeca Mcmahan 08/24/2022 1 [place] [id number] Nadia Mcmahan [id number] Rebeca Mcmahan 09/08/2023 1 [facility] [id number] Donnell Mcmahan [id number] Rebeca Mcmahan 07/11/2025 PAYMENT PLAN Rebecachrissie Mcmahan 07/16/2025 1 [place] [id number] Willi Mcmahan [id number] Rebeca Mcmahan 12/16/2024 1 [facility] [id number] Donnell Mcmahan [id number] Rebeca Mcmahan Notes Date Note Type Note Provider Name and Address Organization Details Recorded Time 06/04/2025 text/html Generic HPI TemplateReported by Patient Karissa Orellana CNM [address], [place], [address], [facility] 06/05/2025 06:56:03 06/20/2025 text/html Generic HPI TemplateReported by Patient Karissa Orellana CNM [address], [place], [address], [facility] 06/20/2025 16:26:13 07/04/2025 text/html Generic HPI TemplateReported by Patient Karissa Orellana CNM [address], [place], [address], [facility] 07/04/2025 17:06:55 07/11/2025 text/html Generic HPI TemplateReported by Patient Karissa Orellana CNM [address], [place], [address], [facility] 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 Status 02/22/20 25 1 O Positive 170 Erickson Shaina OPEN Fetus Data First Name Last Name Admitted to NICU Weight (g) Sex Living Outcome Pediatric Complications Fetus ID Race Codes Race Delivery Type [id number] Problems Problem Notes first - bASA dailyP yelectasis LT 9.1 mm-06/04/25, rpt 4 weeks- [facility] Problem Name Start Date End Date Resolution Snomed Code Not e Asthma 02/21/2025 [id number] Charli Calculation Initial Charli Date Initial Exam Date Initial Exam Provider Initial Ultrasound Date Last Menstrual Period Date Ultra Sound Weeks Gestation 07/28/2025 12/19/2024 [email or web address] 12/19/2024 10/21/2024 9 Eighteen To Twenty Week Charli Update Ultra Sound Date Fundal Height At Umbil Quickening Date Ultra Sound Latest Weeks Gestation Final Charli Confirmed By Final Charli Confirmed Date Final Charli Date Ultra Sound Latest Days Gestation 03/13/20 25 21 02/21/2025 07/28/20 25 2 Pre- Flowsheet Flowsheet Date 02/21/2025 Vallejo Score Blood Edema Fundus Height Fundus Units Glucose Ketones Leukocytes Nitrite Labor Signs Protein Cervic Dilation Cervic Effacement Cervic Station neg none none trace Type Weight in lbs Pre/Post Dialysis Refused Weight 171.252892039947 BP Diastolic BP Location Tested BP Systolic BP Type 70 130 Fetus Heart Rate Present A 147 Present Fetus Movement A No Comments Patient states that is havin g some back pain. reviewed ice, tylenol, start bASA daily to reduce risk of pre-e. education and precautions, labs today plan maternity belt at 28 weeks. begin routine care Flowsheet Date 03/13/2025 Vallejo Score Blood Edema Fundus Height Fundus Units Glucose Ketones Leukocytes Nitrite Labor Signs Protein Cervic Dilation Cervic Effacement Cervic Station Type Weight in lbs Pre/Post Dialysis Refused BP Diastolic BP Location Tested BP Systolic BP Type Fetus Heart Rate Present Fetus Movement Comments Flowsheet Date 03/14/2025 Vallejo Score Blood Edema Fundus Height Fundus Units Glucose Ketones Leukocytes Nitrite Labor Signs Protein Cervic Dilation Cervic Effacement Cervic Station Type Weight in lbs Pre/Post Dialysis Refused 175.100626676131 BP Diastolic BP Location Tested BP Systolic BP Type 67 L arm 107 sitting Fetus Heart Rate Present Fetus Movement A Yes Comments reviewed US, will rpt in 4 w eeks, does not know gender reveal in march, education and precautions, 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 reviewed carrier screen, f/u 4 weeks Flowsheet Date 04/09/2025 Vallejo Score Blood Edema Fundus Height Fundus Units Glucose Ketones Leukocytes Nitrite Labor Signs Protein Cervic Dilation Cervic Effacement Cervic Station Type Weight in lbs Pre/Post Dialysis Refused BP Diastolic BP Location Tested BP Systolic BP Type Fetus Heart Rate Present Fetus Movement Comments Flowsheet Date 04/09/2025 Vallejo Score Blood Edema Fundus Height Fundus Units Glucose Ketones Leukocytes Nitrite Labor Signs Protein Cervic Dilation Cervic Effacement Cervic Station Type Weight in lbs Pre/Post Dialysis Refused 179.723116324757 BP Diastolic BP Location Tested BP Systolic BP Type 76 L arm 114 sitting Fetus Heart Rate Present Fetus Movement A Yes Comments +FM, US to follow, precautio ns and education f/u 4 weeks Flowsheet Date 05/06/2025 Vallejo Score Blood Edema Fundus Height Fundus Units Glucose Ketones Leukocytes Nitrite Labor Signs Protein Cervic Dilation Cervic Effacement Cervic Station Type Weight in lbs Pre/Post Dialysis Refused Weight 182.026849072506 BP Diastolic BP Location Tested BP Systolic BP Type 70 L arm 116 sitting Fetus Heart Rate Present A 125 Fetus Movement A Yes Comments Doing well, good movem ent. No cramping or bleeding. Some back pain, will order belly band. GCT and labs today. Discussed tdap, allergic to tetanus vaccine. RTC 2 weeks. Flowsheet Date 05/21/2025 Vallejo Score Blood Edema Fundus Height Fundus Units Glucose Ketones Leukocytes Nitrite Labor Signs Protein Cervic Dilation Cervic Effacement Cervic Station Type Weight in lbs Pre/Post Dialysis Refused Weight 184.828388688073 BP Diastolic BP Location Tested BP Systolic BP Type 68 L arm 108 sitting Fetus Heart Rate Present A 135 Present Fetus Movement A Yes Comments + FM, planning rsv, has clas s at [employer] scheduled, precautions and education,f/u 2 weeks Flowsheet Date 06/04/2025 Vallejo Score Blood Edema Fundus Height Fundus Units Glucose Ketones Leukocytes Nitrite Labor Signs Protein Cervic Dilation Cervic Effacement Cervic Station Type Weight in lbs Pre/Post Dialysis Refused BP Diastolic BP Location Tested BP Systolic BP Type Fetus Heart Rate Present Fetus Movement Comments Flowsheet Date 06/04/2025 Vallejo Score Blood Edema Fundus Height Fundus Units Glucose Ketones Leukocytes Nitrite Labor Signs Protein Cervic Dilation Cervic Effacement Cervic Station Type Weight in lbs Pre/Post Dialysis Refused Weight 188.149631824261 BP Diastolic BP Location Tested BP Systolic BP Type 72 L arm 106 sitting Fetus Heart Rate Present Fetus Movement A Yes Comments doing well, +FM call for pre admit, order for rsv vaccine given, nausea has returned rx for zofran lt pyelectasis precautions and education efw 60% f/u 2 weeks Flowsheet Date 06/20/2025 Vallejo Score Blood Edema Fundus Height Fundus Units Glucose Ketones Leukocytes Nitrite Labor Signs Protein Cervic Dilation Cervic Effacement Cervic Station Type Weight in lbs Pre/Post Dialysis Refused Weight 190.659020648664 BP Diastolic BP Location Tested BP Systolic BP Type 74 L arm 117 sitting Fetus Heart Rate Present Fetus Movement A Yes Comments still deciding on rsv, +FM, us at next visit, precautions and education plan gbs in 2 weeks Flowsheet Date 07/04/2025 Vallejo Score Blood Edema Fundus Height Fundus Units Glucose Ketones Leukocytes Nitrite Labor Signs Protein Cervic Dilation Cervic Effacement Cervic Station Type Weight in lbs Pre/Post Dialysis Refused BP Diastolic BP Location Tested BP Systolic BP Type Fetus Heart Rate Present Fetus Movement Comments Flowsheet Date 07/04/2025 Vallejo Score Blood Edema Fundus Height Fundus Units Glucose Ketones Leukocytes Nitrite Labor Signs Protein Cervic Dilation Cervic Effacement Cervic Station Type Weight in lbs Pre/Post Dialysis Refused 193.64886200221 BP Diastolic BP Location Tested BP Systolic BP Type 71 L arm 111 sitting Fetus Heart Rate Present Fetus Movement A Yes Comments left pyelectasis, prominent renal bladder, efw 67%, precautions and education, gbs collected f/u here 1 week plan mfm US Flowsheet Date 07/11/2025 Vallejo Score Blood Edema Fundus Height Fundus Units Glucose Ketones Leukocytes Nitrite Labor Signs Protein Cervic Dilation Cervic Effacement Cervic Station Type Weight in lbs Pre/Post Dialysis Refused 198.443026761225 BP Diastolic BP Location Tested BP Systolic BP Type 69 L arm 109 sitting Fetus Heart Rate Present A 145 Present Fetus Movement A Yes Comments +FM doing well, precautions and education has appt with care team, discussed outpt follow up if delivers before visit. f/u here i one week Menstrual History Last Menstrual Date Menses Monthly On Bcp Conception Prior Menses Frequency Hcg Plus Date Menarche Onset Age 0210/21/2024 true Delivery Information Delivery Date Delivery Type Labor Anesthesia Weeks Gestation Incision Type Labor Labor Length Hrs Delivered By Post Complications Tubal Sterilization Discharge Date Comments Discharge Information Feeding Method Contraceptive Method Maternal HG B and HCT Levels
[2025-07-16] MEDS: LACTATED RINGERS 1,000 ML 125 ML IV CONT ×2 (15:06→17:20)
[2025-07-16] MEDS: OXYTOCIN 30 UNITS/NS 500 ML 30 UNITS/500 ML BAG IV CONT (15:06)
--- NOTE | 2025-07-16 17:52 | WPDOBADMIT ---
Obstetrics - Admit Note Admission Note: record reviewed. No pertinent additions to the history and/or any subsequent changes in the physical findings that are not consistent with the expected course of the were found. Additions to the history and/or subsequent changes in the physical findings follow. Admit for SROM, clear fluid, anticipate vaginal delivery
--- NOTE | 2025-07-16 18:01 | P.PNAN_ITS ---
Anes - Eval Pre Procedure Procedure: Labor epidural Date/Time: 07/16/25 18:01 Surgeon: Addy Preop Diagnosis: Abdominal pain with contractions Pre Op Diagnosis: Leaking Patient Data Age: 24 Gender: F Height: 1.73 m Weight: 85 kg Last Vital Signs Temp 98.1 F 07/16/25 16:56 Pulse 65 07/16/25 18:00 BP 111/66 07/16/25 18:00 Pulse Ox 100 07/16/25 17:58 O2 Del Method Room Air 07/16/25 14:14 Allergies Allergy/AdvReac Type Severity Reaction Status Date / Time Tetanus Vaccines and Toxoid Allergy Severe Seizure Verified 07/16/25 13:45 aloe Allergy Intermediate Hives Verified 07/16/25 13:45 Home Medications ?Medication ?Instructions ?Recorded ?Confirmed ?Type loratadine 10 mg tablet (Claritin) 10 mg PO DAILY 10/1906/27/25 History vit no.95-ferrous 1 tablet PO DAILY 06/27/25 06/27/25 History fumarate 28 mg-folic acid 800 mcg tablet () Laboratory Tests 07/16/25 07/16/25 13:33 14:21 WBC 11.5 H K/mm3 (4.5-10.0) RBC 4.04 L M/mm3 (4.2-5.4) Hgb 10.6 L g/dL (12.0-15.0) Hct 33.2 L % (37.0-47.0) MCV 82.2 fl (80-100) MCH 26.2 pg (26-34) MCHC 31.9 L g/dl (32-36) RDW 13.9 % (11.5-14.5) Plt Count 259 k/mm3 (150-375) MPV 11.2 H fl (7.4-10.4) Immature Gran % (Auto) 0.9 H % (0-0.5) Neut % (Auto) 68.2 % (45.5-73.1) Lymph % (Auto) 19.1 % (18.3-44.2) [place] % (Auto) 9.4 H % (2.6-8.5) Eos % (Auto) 1.9 % (0-4.4) Baso % (Auto) 0.5 % (0.2-1.2) Lymph # (Auto) 2.20 K/mm3 (0.9-3.2) [place] # (Auto) 1.1 H K/mm3 (0.1-0.6) Eos # (Auto) 0.2 K/mm3 (0-0.3) Baso # (Auto) 0.1 K/mm3 (0.0-0.1) Abs Immat Gran (auto) 0.10 H K/mm3 (0.00-0.031) Absolute Neuts (auto) 7.9 H K/mm3 (1.3-6.7) Absolute Nucleated RBC 0.000 K/mm3 (0.0-0.012) Nucleated RBC % 0.0 % (0.0-0.2) Membranes Rupture Rom plus positive (Negative) Syphilis IgG/IgM Ab Non-reactive (Nonreactive) Blood Type O Positive Antibody Screen Negative : gestational age HCG: positive Patient hx anesthesia problems: none Family hx anesthesia problems: none Results Review: All pre-operative results and documents have been reviewed as part of the pre- operative evaluation. 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 Sibling No problems noted. 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 Gender identity (if verbalized by the patient): Female Spiritual care concerns: No Exam Day of Procedure 07/16/25 18:01 Patient weight: overweight Airway: Mallampati scale class II
[2025-07-16] MEDS: ONDANSETRON INJ 4 MG/2 ML VIAL IV PUSH (20:39)
[2025-07-16] MEDS: OXYTOCIN 30 UNITS/NS 500 ML 30 UNITS/500 ML BAG 999 UNITS IV CONT (21:48)
--- NOTE | 2025-07-16 22:01 | PM.OBPRVD ---
OB - Vaginal Delivery Note Procedure Delivery date: 07/16/25 Delivery augmentation: Pitocin Delivery monitor: External FHT and External Uterine Route of delivery: Laceration Description: None Specimen: No Quantitative Blood Loss (ml): 125 Anesthesia type: Epidural Disposition: Floor Complications: No immediate complications Baby Date of : 07/16/25 Time of : 21:44 Gestational Age by Date: 38 gender: Male presentation: vertex position: Right Occiput Anterior Placenta delivery description: Expressed Cord Vessel Description: 3 Vessels, Nuchal Cord (x2) and Delayed Cord Clamping score one minute: 8 score five minutes: 9
[2025-07-16] MEDS: OXYTOCIN 30 UNITS/NS 500 ML 30 UNITS/500 ML BAG 125 UNITS IV CONT (22:20)
[2025-07-17] VITALS (8 sets, daily range): BP systolic 102–114; BP diastolic 59–67; PULSE 74–98; RESP 16–18; TEMP 36.3–37.1; O2SAT 97–99
[2025-07-17] MEDS: IBUPROFEN 600 MG TABLET PO ×3 (00:43→21:36)
[2025-07-17] MEDS: WITCH HAZEL 40 PADS 1 PAD TOPICAL (00:44)
[2025-07-17] MEDS: ACETAMINOPHEN 325 MG TABLET 650 MG PO (01:45)
[2025-07-17 05:44] LABS: Hematocrit 29.6 % (37.0-47.0); Hemoglobin 9.5 g/dL (12.0-15.0)
--- NOTE | 2025-07-17 07:15 | PM.OBPNVD ---
OB - PN: Subj Subjective Date/time seen: 07/17/25 07:15 Interval history: pp day 1 doing well bottle feeding OB - PN: Obj Data Labs 07/17/25 05:15 Labs: Laboratory Results - last 24 hr 07/16/25 07/16/25 07/17/25 13:33 14:21 05:15 WBC 11.5 H RBC 4.04 L Hgb 10.6 L 9.5 L Hct 33.2 L 29.6 L MCV 82.2 MCH 26.2 MCHC 31.9 L RDW 13.9 Plt Count 259 MPV 11.2 H Immature Gran % (Auto) 0.9 H Neut % (Auto) 68.2 Lymph % (Auto) 19.1 [place] % (Auto) 9.4 H Eos % (Auto) 1.9 Baso % (Auto) 0.5 Lymph # (Auto) 2.20 [place] # (Auto) 1.1 H Eos # (Auto) 0.2 Baso # (Auto) 0.1 Abs Immat Gran (auto) 0.10 H Absolute Neuts (auto) 7.9 H Absolute Nucleated RBC 0.000 Nucleated RBC % 0.0 Membranes Rupture Rom plus positive Syphilis IgG/IgM Ab Non-reactive Blood Type O Positive Antibody Screen Negative OB - PN A/P Plan day: 1 Plan: routine care Time Spent With Patient Time: Total time spent is greater than 50% in coordination of care (as documented) at patient's floor/unit and/or counseling patient: Review of Systems Review of Systems: All systems reviewed & are unremarkable except as noted in HPI and below Exam Const: General: cooperative, healthy appearing and comfortable Chest: Chest palpation & inspection: normal inspection of the chest Resp: Effort & Inspection: normal respiratory effort Cardio: Rate: regular rate Skin: General skin exam: normal color Neuro: General: patient oriented x3 Extrem: General: normal to inspection Psych: Appearance: grossly normal
[2025-07-17] MEDS: DOCUSATE SODIUM 100 MG CAPSULE PO ×2 (08:18→16:35)
--- NOTE | 2025-07-17 13:58 | WPDANLDPN2 ---
Anes-Prog Note L&D Date/Time: 07/17/25 13:58 Comfortable throughout: labor and delivery Neuraxial method: epidural Epidural/Spinal procedure site: clean & non-tender Neuro status: Neuro function grossly intact. Cardiovascular status: normal Respiratory status: normal Airway patency: baseline Mental status: baseline Post-Op hydration status: normal Vital Signs: Last Vital Signs Temp 36.3 C L 07/17/25 12:20 Pulse 74 07/17/25 12:20 Resp 16 07/17/25 12:20 BP 102/59 L 07/17/25 12:20 Pulse Ox 99 07/17/25 12:20 O2 Del Method Room Air 07/17/25 11:30 Pain score (VAS): 1 I/O: Intake & Output 07/16/25 07/17/25 07/17/25 23:59 07:59 15:59 Intake Total 1000 0 Output Total 125 75 Balance 875 -75 0 Post-procedural complaints: none Patient feedback: Patient satisfied with anesthetic care.
--- NOTE | 2025-07-18 07:34 | P.PNOB_ITS ---
OB - PN: Subj Subjective Date/time seen: 07/18/25 07:34 Interval history: pp day 2 doing well bottle feeding OB - PN: Obj Data Labs 07/17/25 05:15 OB - PN A/P Plan day: 2 Plan: routine care and discharge home Time Spent With Patient Time: Total time spent is greater than 50% in coordination of care (as documented) at patient's floor/unit and/or counseling patient: Review of Systems 2 Review of Systems: All systems reviewed & are unremarkable except as noted in HPI and below Exam 2 Const: General: cooperative, healthy appearing and comfortable Chest: Chest palpation & inspection: normal inspection of the chest Resp: Effort & Inspection: normal respiratory effort Cardio: Rate: regular rate Skin: General skin exam: normal color Neuro: General: patient oriented x3
--- NOTE | 2025-07-18 07:36 | PM.OBDSVD ---
DS: Admitting Diagnosis Discharge Date 07/18/25 Admitting Diagnosis srom DS: Discharge Diagnosis Discharge Diagnosis (1) Vaginal delivery: Code(s): O80 - Encounter for full-term uncomplicated delivery Status: Acute OB - DS: Summary OB Procedures : None OB Procedures Intrapartum: Spontaneous Vag Delivery OB Procedures: : None Peripartum Data Laceration Description: None Time Spent with Patient Time attestation: Total time spent providing and/or coordinating discharge services: Discharge Plan Discharge Attending physician on discharge: Aime Daly Consulting providers: Karissa Orellana Discharging Clinician: Karissa Orellana Patient Disposition: Home Activity: pelvic rest Diet: regular Patient Instructions: Antibiotic Form Patient Language: Portuguese Stand Alone Forms: General Discharge Information Follow-up/Referrals: Karissa Orellana CNM [Certified Nurse Commercial Reporter, GLASS CUT OFF SUPERVISOR] - 4 Weeks Discharge Medications: Continued PNV no.95-ferrous fumarate-FA [] 28 mg iron- 800 mcg tablet 1 tablet PO DAILY loratadine [Claritin] 10 mg Tablet 10 mg PO DAILY Date of admission: 07/16/25 13:05 Primary Care Provider: Arnold Dee Admitting Provider: Aime Daly Attending physician on admission: Aime Daly Condition: Stable
[2025-07-18 07:40] VITALS: BP 106/65; PULSE 82; RESP 16; TEMP 36.4; O2SAT 98
[2025-07-18] MEDS: IBUPROFEN 600 MG TABLET PO ×2 (08:36→15:53)
[2025-07-18] MEDS: DOCUSATE SODIUM 100 MG CAPSULE PO ×2 (08:37→15:52)
--- NOTE | 2025-07-18 18:43 | PC.NURSE ---
Patient to be discharged to a No Care Bed, is not being discharged today.
[2025-07-18] MEDS: BENZOCAINE 20% AER SPR (*SP) 56 GM CAN 1 SPRAY TOPICAL (19:54)
[2025-07-18] MEDS: WITCH HAZEL 40 PADS 1 PAD TOPICAL (19:54)
[2025-07-18] MEDS: ACETAMINOPHEN 325 MG TABLET 650 MG PO (19:54)
[2025-07-21 11:03] VITALS: BP 119/73; PULSE 74; RESP 18; TEMP 36.9; O2SAT 100
== END 2025-07-18 20:00 | disposition home or self-care (01) | DRG 807 ==
LOC: ANHLDR 13:22 → ANHOB2 07-17 00:58
PROVIDERS: Advanced Practice Midwife; Admitting Provider Obstetrics & Gynecology; PCP Family Medicine; Visit Provider Obstetrics & Gynecology
DX: O69.81X0 Labor and delivery complicated by cord around neck, without compression, not applicable or unspecified (principal); Z37.0 Single live birth; Z3A.38 38 weeks gestation of pregnancy
CPT/HCPCS: 36415; 84112; 85014; 85018; 85025; 86593; 86850; 86900; 86901; A9270; J2405; J2590; J2795; J3010; J7120